=== PATIENT | male | born 2000 | race Hispanic/Latino ===

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

== ENCOUNTER 2023-06-13 12:50 | Emergency (ER) | payer OTHER, SELFPAY ==
[2023-06-13] MEDS ORDERED: Lidocaine 1% w/Epinephrine 1:100K 20 ML VIAL ONE (13:27)
[2023-06-13] MEDS ORDERED: Bupivacaine 0.25% 10 ML VIAL ONE (13:35)
== END 2023-06-13 14:22 | disposition home or self-care (01) ==
LOC: ERS 12:50
DX: S68.120A Partial traumatic metacarpophalangeal amputation of right index finger, initial encounter (principal); W31.2XXA Contact with powered woodworking and forming machines, initial encounter
CPT/HCPCS: 64450; S0020